=== PATIENT | male | born 1960 | race Two or more races ===

== ENCOUNTER 2018-02-04 07:56 | Emergency (ER) | payer SELFPAY ==
--- NOTE | 2018-02-04 08:15 | CPEKG ---
Heart Rate: 69 RR Interval: 870 P-R Interval: 180 QRSD Interval: 88 QT Interval: 420 QTC Interval: 450 P [place]: 61 QRS [place]: -6 T Wave [place]: 14 EKG Severity - NORMAL ECG - EKG Impression: SINUS RHYTHM Electronically Signed By: Jonatan Wright 04-Feb-2018 14:57:15
--- NOTE | 2018-02-04 08:16 | EDPHY ---
H & P Stated Complaint: awakened this morning with dizzyness/room spinning /off balance Time Seen by Provider: 02/04/18 08:16 - Personal History Current Tetanus Diphtheria and Acellular Pertussis (TDAP): Yes - Medical/Surgical History Hx Asthma: No Hx Chronic Respiratory Disease: No Hx Diabetes: No Hx Cardiac Disease: No Hx Renal Disease: No Hx Cirrhosis: No Hx Alcoholism: No Hx HIV/AIDS: No Hx Splenectomy or Spleen Trauma: No Other PMH: l knee surg - Social History Smoking Status: Never smoked Constitutional: Initial Vital Signs Temperature (C) 36.4 C 02/04/18 07:58 Heart Rate 73 02/04/18 07:58 Respiratory Rate 18 02/04/18 07:58 Blood Pressure 148/98 H 02/04/18 07:58 O2 Sat (%) 97 02/04/18 07:58 O2 Delivery Mode Room Air Allergies/Adverse Reactions: No Known Allergies Allergy (Unverified 02/04/18 07:58) Home Medications: Medication Instructions Recorded Meclizine HCl [Meclizine HCl 25 mg 25 mg PO Q6H #20 tab 02/04/18 (RX,OTC)] Medical Decision Making ED Course/Re-evaluation: CHIEF COMPLAINT: Dizzy, off balance HISTORY OF PRESENT ILLNESS: The patient is a 57 y/o male complaining of feeling dizzy and off balance onset at 05:30, 3 hours ago. Yesterday he was asymptomatic. Today when he woke up he had an odd sensation in his neck. When he tried to stand up and walk, he had difficulty balancing himself. He currently feels like he drank 3 liters of Vodka as the room is spinning. His symptoms are improved lying flat with his eyes closed and are exacerbated with moving his head or walking. Denies history of similar symptoms. Denies headache, chest pain, shortness of breath, abdominal pain, urinary or bowel complaints, fever, numbness, paresthesias. REVIEW OF SYSTEMS: A 10 point review of systems was performed and is negative with the exception of the elements mentioned in the history of present illness. PHYSICAL EXAM: HR, BP, O2 Sat, RR. Temp noted General Appearance: Alert, well hydrated, appropriate, and non-toxic appearing. Head: Atraumatic without scalp tenderness or obvious injury Eyes: Pupils equal, round, reactive to light and accommodation, EOMI, no trauma , no injection. Ears: Clear bilaterally, no perforation, normal landmarks Nose: Atraumatic, no rhinorrhea, clear. Throat: There is no erythema or exudates, no lesions, normal tonsils, mucus membranes moist. Neck: Supple, nontender, no lymphadenopathy. Respiratory: No retractions, no distress, no wheezes, and no accessory muscle use. Lungs are clear to auscultation bilaterally. Cardiovascular: Regular rate and rhythm, no murmurs, rubs, or gallops. Bilateral carotid, radial, dorsalis pedis, and posterior tibial pulses intact. Good capillary refill all extremities. Gastrointestinal: Abdomen is soft, nontender, non-distended, no masses, no rebound, no guarding, no peritoneal signs. Musculoskeletal: Normal active ROM of all extremities, atraumatic. Neurological: Alert, appropriate, and interactive. Feels unbalanced and dizzy when moving his head. The patient has normal DTRs and non-focal cranial nerves, motor, sensory, and cerebellar exam. Skin: No rashes, good turgor, no nodules on palpation. Past medical history: Denies Past surgical history: Left knee surgery Family history: Denies Social history: Lives in [place], employed DIAGNOSTICS/PROCEDURES/CRITICAL CARE TIME: EKG: The 12 lead EKG was interpreted by myself as sinus rhythm. See hard copy and/or "tracemaster" electronic copy for interpretation. DIFFERENTIAL DIAGNOSIS: The differential diagnosis for the patient's dizziness included but was not limited to peripheral and central causes of vertigo, orthostatic causes including dehydration, cardiogenic and neurogenic causes, and blood loss. MEDICAL DECISION MAKING: The patient is a 57 y/o male presenting with feeling dizzy and off balance onset at 05:30, 3 hours ago. On exam he is dizzy when moving his head, but these symptoms improve once he closes his eyes and lies flat. Patient's symptoms are consistent with benign paroxysmal positional vertigo, not a cerebellar stroke. Laboratory and imaging studies are not indicated at this time. EKG ordered; 25mg PO Meclizine administered. 0813: I interpreted EKG as sinus rhythm. 0835: [place] [facility] will be able to see the patient at 01:00 today to preform the Irma Maneuver. 0840: Reassessed patient and discussed ENT follow up as well as Meclizine prescription. Return precautions provided; patient is comfortable with this plan. - Data Points Medications Given: Discontinued Medications Meclizine HCl (Meclizine Hcl) 25 mg PO EDNOW ONE Stop: 02/04/18 08:26 Last Admin: 02/04/18 08:33 Dose: 25 mg Departure - Departure Disposition: Home, Routine, Self-Care Clinical Impression: Benign paroxysmal positional vertigo Qualifiers: Laterality: unspecified laterality Qualified Code(s): H81.10 - Benign paroxysmal vertigo, unspecified ear Condition: Good Instructions: Vertigo (ED), Benign Paroxysmal Positional Vertigo (ED), Dizziness (ED) Additional Instructions: 1. Follow up with [facility], Sheba Ceballos, at 1:00 today for the Irma maneuver. 2. Use meclizine as prescribed. 3. Drink plenty of fluids. 4. Return to the emergency department immediately for headache, numbness, weakness, severe vertigo, neck pain, inability to tolerate fluids by mouth or other worsening of condition. 5. If symptoms persist for more than 48 hours, followup with your primary care physician and/or a neurologist for further evaluation. Referrals: Sheba Ceballos PA [Physician Athletic Director] - As per Instructions Vikram Torres MD [Medical Doctor] - As per Instructions Prescriptions: Meclizine HCl [Meclizine HCl 25 mg (RX,OTC)] 25 mg PO Q6H #20 tab Report Scribed for: Jonatan Wright Report Scribed by: Megan Nance Date of Report: 02/04/18 Time of Report: 08:19
[2018-02-04] MEDS ORDERED: MECLIZINE HCL 25 MG TAB PO ONE (08:25)
[2018-02-04 08:55] VITALS: BP 135/94
== END 2018-02-04 08:50 | disposition home or self-care (01) ==
DX: H81.10 Benign paroxysmal vertigo, unspecified ear (principal)